=== PATIENT | male | born 1985 | race Caucasian/White ===

== ENCOUNTER 2016-08-25 19:50 | Emergency (ER) | payer SELFPAY ==
[2016-08-25] MEDS ORDERED: NORMAL SALINE 10 ML SYRINGE FLUSH IVP PRN (20:07)
[2016-08-25] MEDS ORDERED: Sodium Chloride 0.9% 1,000 ML PRIMARY IV ONE (20:07)
[2016-08-25] MEDS ORDERED: LORazepam 2 MG/1 ML VIAL IVP ONE (20:09)
[2016-08-25 20:20] VITALS: RESP 18; TEMP 97.2
[2016-08-25 20:24] LABS: BASOPHILS # (AUTO) 0.02 10*3/UL; BASOPHILS % (AUTO) 0.2 % (0-1); EOSINOPHILS # (AUTO) 0.14 10*3/UL; EOSINOPHILS % (AUTO) 1.4 % (0-8); HEMATOCRIT 46.4 % (42.0-52.0); HEMOGLOBIN 16.6 g/dL (14.0-18.0); LYMPHOCYTES # (AUTO) 2.19 10*3/uL; MEAN CORPUSCULAR HGB CONC 35.8 g/dL (33-37); MEAN CORPUSCULAR VOLUME 83.8 FL (80-90); MEAN PLATELET VOLUME 9.5 FL (7.4-12.2); MONOCYTES # (AUTO) 0.59 10*3/UL (0.3-0.8); NEUTROPHILS # (AUTO) 6.78 10*3/UL; NEUTROPHILS % (AUTO) 69.4 % (50-80); RED BLOOD COUNT 5.54 10^6/uL (4.70-6.10)
[2016-08-25 20:25] LABS: PLATELET MORPHOLOGY COMMENT NORMAL MORPHOLOGY (NORM); RBC MORPHOLOGY COMMENT NORMAL MORPHOLOGY (NORM); WBC MORPHOLOGY COMMENT NORMAL MORPHOLOGY (NORM)
[2016-08-25 20:26] LABS: BILIRUBIN,URINE NEGATIVE (NEG); COLOR,URINE YELLOW; GLUCOSE, URINE (UA) NEGATIVE (NEG); NITRATE,URINE NEGATIVE (NEG); OCCULT BLOOD,URINE MODERATE (NEG); PROTEIN,URINE 30 mg/dl (NEG); UROBILINOGEN,URINE 0.2 EU/dL (0.2)
[2016-08-25 20:32] LABS: CLARITY,URINE CLEAR (CLEAR); URINE SAMPLE TYPE VOID; URINE SPECIFIC GRAVITY - MAN 1.025
[2016-08-25 20:33] LABS: URINE CASTS MODERATE; WBC,URINE 0-3
[2016-08-25 20:34] LABS: AMPHETAMINE SCREEN NEGATIVE (NEG); CANNABINOID SCREEN,URINE POSITIVE (NEG); COCAINE SCREEN NEGATIVE (NEG); METHADONE URINE SCREEN NEGATIVE (NEG); METHAMPHETAMINES SCREEN,URINE NEGATIVE (NEG); OPIATE SCREEN,URINE NEGATIVE (NEG)
[2016-08-25 20:36] LABS: BLOOD UREA NITROGEN 14 mg/dL (7-22); C-REACTIVE PROTEIN < 0.5 mg/dL (0.0-0.9); CALCIUM 9.2 mg/dL (8.7-10.7); EST GLOMERULAR FILTRATION > 60 (>60 ml/min/1.73m(2)); MAGNESIUM 2.3 mg/dL (1.6-2.4); SALICYLATE < 1.0 mg/dl (0-20); SERUM ALBUMIN 4.7 g/dL (3.5-4.8)
--- NOTE | 2016-08-25 21:01 | PDOC ---
General Adult HPI - General Chief Complaint: General Medical Stated Complaint: "Out of it" Date Seen by Provider: 08/25/16 Time Seen by Provider: 19:55 Source: POSITIVE: Patient, EMS Nurse's Notes Reviewed & Considered: Yes EMS Report Reviewed & Considered: Verbal - History of Present Illness Initial Comment: The patient is a 30-year-old male who is brought to the emergency department by ambulance after a questionable seizure. The patient apparently has not been feeling well all day. He has had some nausea and generalized shakiness and weakness. He states that he was lying on the couch and subsequently got up to go into the kitchen. He apparently became very confused and his partner stated that he became somewhat stiff and out of it. He was laid down and EMS was called. This seemed to last for about a minute or 2. The patient states that when he woke up he was nauseated and feels weak in general. EMS was called and the patient was subsequently transported here for further evaluation. He does report a slight frontal headache which she rates at about a 2 out of 10. He also feels weak in general. His nausea has improved. He denies focal numbness or weakness in his extremities or change in vision. He does admit to smoking pot today in celebration of [employer] . In addition he does report that he has a history of bipolar, schizoaffective disorder and anxiety for which he takes Wellbutrin and Zyprexa. In addition he was taking Xanax fairly regularly order 2 mg a day for the past month. He states that he ran out of this medication 2 days ago. He denies any significant alcohol use stating the last time he drank was about a week ago. He does not have any known history of seizures. He denies any chest pain or shortness of breath. Have you received a tetanus shot in the past 10 years?: Yes - Patient Home Medications Home Medications: Home Medications Bupropion HCl [Wellbutrin Xl] 300 mg PO DAILY 08/25/16 LORazepam Tab [Ativan Tab] 1 mg PO Q6H #10 tablet 08/25/16 Olanzapine [Zyprexa] 5 mg PO QAM 08/25/16 Olanzapine [Zyprexa] 10 mg PO QPM 08/25/16 - Patient Allergies Allergies/Adverse Reactions: Allergies Allergy/AdvReac Type Severity Reaction Status Date / Time No Known Allergies Allergy Verified 08/25/16 21:02 Past Medical History - heen HEENT History: Denies History Cardiovascular History: Denies History Respiratory History: Denies History Gastrointestinal History: Denies History Genitourinary History: Denies History Endocrine History: Denies History Musculoskeletal History: Denies History Blood Disorders: Denies History Psychiatric History: Bi Polar Disorder, Anxiety Disorders History of Sexually Transmitted Diseases: No Male Reproductive History: Denies History Cancer History: Denies History In Past Year Been Physically Harmed or Verbally Threatened: No History of MDRO: No History of Other Communicable Diseases: No Tobacco Use: Current Every Day Smoker Alcohol Use: Occasionally Type of alcohol normally used: Beer Substance Use Type: Marijuana Previous Surgical History: Yes Type / Date of Surgery: RIGHT INGUINAL HERNIA REPAIR Anesthesia Reactions: No Malignant Hyperthermia: No Family History of Malignant Hyperthermia: No Significant Family History: No pertinent family hx Past Medical History Reviewed: Reviewed - No Changes ROS - Limitations ROS Limitations: No Limitations Constitution: DENIES: Chills, Fever Cardiovascular: REPORTS: Denies Cardiac Symptoms Respiratory: REPORTS: Denies Resp Symptoms Neurological: REPORTS: Denies Neuro Symptoms Gastrointestinal: REPORTS: Nausea (Improved at this point). DENIES: Abdominal Pain Endocrine: REPORTS: Fatigue (Generalized weakness) Musculoskeletal: REPORTS: Denies MS Symptoms Eyes: REPORTS: Denies Symptoms ENT: REPORTS: Denies Symptoms Skin: DENIES: Rash General Adult Exam - General Appearance General Appearance: POSITIVE: Alert, Cooperative, No Acute Distress, Other (He is somewhat shaky in general) - HEENT HEENT: POSITIVE: Head Inspection Nml, Eyes Inspection Nml, Ears Inspection Nml, Pharynx Inspect. Nml, PERRL, EOMI - Neck Neck: POSITIVE: Normal Inspection. NEGATIVE: Lymphadenopathy - Respiratory Respiratory: POSITIVE: No Respiratory Distress, Breath Sounds Normal - Cardiovascular Cardiovascular: POSITIVE: Regular Rate & Rhythm, No Murmur - Abdomen Abdomen: Soft: (All Quadrants), Normal Bowel Sounds: (All Quadrants), No Guarding: (All Quadrants), No Rebound: (All Quadrants), No Distention: (All Quadrants) - Back Back: POSITIVE: Normal Inspection - Skin Skin: POSITIVE: Normal Color, No Rash - Extremities Extremity: Normal ROM: (All Extremities), Normal Inspection: (All Extremities) - Neurological / Psychological Neurological: POSITIVE: Oriented X3, Motor Normal, Sensation Normal, Other (No focal neurologic deficits) General Adult Progress - Results Reviewed by me Xrays/CTs/US Reviewed by me: Yes Discussed with Radiologist: Yes Radiology Findings: CT scan of his head is normal per radiologist. Lab Results Reviewed: Yes Lab Results:: Laboratory Results 08/25/16 Range/Units 20:21 WBC 9.78 (4.8-10.8) 10^3/uL RBC 5.54 (4.70-6.10) 10^6/uL Hgb 16.6 (14.0-18.0) g/dL Hct 46.4 (42.0-52.0) % MCV 83.8 (80-90) FL MCH 30.0 (27-31) PG MCHC 35.8 (33-37) g/dL RDW Std Deviation 42.0 (39-50) fL RDW Coeff of Radha 13.8 (11.5-14.5) % Plt Count 261 (140-350) 10*3/uL MPV 9.5 (7.4-12.2) FL Immature Gran % (Auto) 0.6 (0-5) % Neut % (Auto) 69.4 (50-80) % Lymph % (Auto) 22.4 (10-50) % Benzie % (Auto) 6.0 (5-15) % Eos % (Auto) 1.4 (0-8) % Baso % (Auto) 0.2 (0-1) % Immature Gran # (Auto) 0.06 10*3/UL Neut # (Auto) 6.78 10*3/UL Lymph # (Auto) 2.19 10*3/uL Benzie # (Auto) 0.59 (0.3-0.8) 10*3/UL Eos # (Auto) 0.14 10*3/UL Baso # (Auto) 0.02 10*3/UL WBC Morphology Comment Normal morphology (NORM) Plt Morphology Comment Normal morphology (NORM) RBC Morph Comment Normal morphology (NORM) Sodium 134 L (135-145) meq/L Potassium 3.8 (3.8-5.2) meq/L Chloride 101 (98-112) meq/L Carbon Dioxide 18 L (23-33) meq/L Anion Gap 15 (5-20) BUN 14 (7-22) mg/dL Creatinine 1.0 (0.70-1.50) mg/dL Estimated GFR > 60 (>60 ml/min/1.73m(2)) BUN/Creatinine Ratio 14.00 (6-20) Glucose 128 H (78-110) mg/dL Calculated Osmolality 280.0 (267-292) mOsm/kg Calcium 9.2 (8.7-10.7) mg/dL Magnesium 2.3 (1.6-2.4) mg/dL Total Bilirubin 1.8 H (0.3-1.2) mg/dL AST 34 (21-57) IU/L ALT 61 (21-72) IU/L Alkaline Phosphatase 75 (38-126) IU/L C-Reactive Protein < 0.5 (0.0-0.9) mg/dL Total Protein 7.9 (6.1-8.0) g/dL Albumin 4.7 (3.5-4.8) g/dL Globulin 3.2 (2.50-4.10) g/dL Albumin/Globulin Ratio 1.40 (1.3-2.0) mg/g Ur Collection Type Void Urine Color Yellow Urine Clarity Clear (CLEAR) Urine pH 6.0 (5.0-8.5) Ur Specific [place] 1.025 (1.005-1.030) U Specif Grav (Refrac) 1.025 Urine Protein 30 (NEG) mg/dl Urine Glucose (UA) Negative (NEG) mg/dL Urine Ketones 15 (NEG) Urine Occult Blood Moderate H (NEG) Urine Nitrate Negative (NEG) Urine Bilirubin Negative (NEG) Urine Urobilinogen 0.2 (0.2) EU/dL Ur Leukocyte Esterase Negative (NEG) Urine RBC 3-5 (NONE) /hpf Urine WBC 0-3 (NONE) Ur Squamous Epith Cells None (NONE) Ur Renal Epithelial Cell None (NONE) Urine Crystals None Urine Bacteria None (NONE) Urine Casts Moderate (NONE) Urine Mucus None (NONE) Urine Trichomonas None (NONE) Urine Yeast None (NONE) Ur Culture Indicated? Culture not set Salicylates < 1.0 (0-20) mg/dl Urine Opiates Screen Negative (NEG) Ur Buprenorphine Negative (NEG) Ur Oxycodone Screen Negative (NEG) Urine Methadone Screen Negative (NEG) Ur Propoxyphene Screen Negative (NEG) Acetaminophen < 10.0 (0-30) ug/mL Barbiturate Screen Negative (NEG) U Tricyclic Antidepress Negative (NEG) Phencyclidine Screen Negative (NEG) Amphetamines Screen Negative (NEG) U Methamphetamines Scrn Negative (NEG) Benzodiazepines Screen Positive H (NEG) Cocaine Screen Negative (NEG) U Marijuana (THC) Screen Positive H (NEG) Serum Alcohol < 10 (0-10) mg/dL EKG Interpreted/Reviewed By Me:: Yes EKG Interpretation:: POSITIVE: Normal Sinus Rhythm, Normal Rate, Normal Intervals, Normal Gates, Normal QRS, Normal ST/T - Patient's Progress MDM / ED Course: The patient did receive a 1 L bolus of normal saline as well as Ativan 1 mg IV for treatment of potential benzodiazepine withdrawal. The patient was feeling much better after administration of Ativan. His head CT is normal in his lab work is all essentially unremarkable. He did test positive for benzodiazepine and THC. At this point it is unclear exactly what this episode represents. It is possible that he may have had a seizure, possibly a withdrawal seizure from benzodiazepine. In addition it's possible that this may have been more of a syncopal episode with some convulsive like activity. He does appear to be dehydrated and feels better after administration of Ativan and fluids. He will be discharged home with Ativan as needed for anxiety or withdrawal type symptoms. In addition he is advised to rest and push fluids. He will return to the emergency room if any worsening or if further seizure activity. He has an appointment with his primary care provider next Monday which he was advised to keep. Patient Care Time - Estimated PCT Patient Care Time (In Minutes): 25 Vital Signs - Recent Vital Signs Vital Signs: Vital Signs (Last 8 hours) Temp Pulse Resp BP Pulse Ox 08/25/16 19:50 97.2 F 90 18 129/98 95 - VS Reviewed Vital Signs Reviewed: Yes Discharge Clinical Impression: Syncope, convulsive Discharge Disposition: Discharged to Home Condition: Stable Prescriptions / Orders: LORazepam Tab [Ativan Tab] 1 mg PO Q6H #10 tablet Patient Instructions Given at Discharge: Syncope (ED) Additional Instructions: It is not exactly clear what this episode represents. It is possible that it could represent a seizure, possibly a withdrawal seizure from Xanax. It is also possible that this may have been a passing out episode more related to dehydration. Either way there may be some component of withdrawal from the Xanax. Recommend rest and push fluids. You have been given Ativan 1 mg every 6 hours as needed for increased shakiness or anxiety. Recommend reevaluation if any further seizure activity especially seizure lasting greater than 5 minutes or anything new or different. Keep your follow-up appointment with Bonita Rebollar at the [facility] in [place] next Monday. Follow Up With: NONE,NONE [Primary Care Provider] -
--- NOTE | 2016-08-25 21:05 | DI ---
CT HEAD SCAN WITHOUT IV CONTRAST, 08/25/2016 8:51 PM : Clinical History: Headache. Seizures. Syncope. Previous Exam: None at this facility. Scans are obtained from the foramen magnum to the vertex without IV contrast. The 4th, 3rd, and lateral ventricles are of normal size, shape, position, and contour for the patient 's age. There are no abnormal areas of increased or decreased density. Specifically, there is no evid ence of an acute hemorrhagic or bland infarct. There are no extracerebral mantles or shift of the mid line structures. Bone window evaluation is normal. There are mucous retention cysts or polyps in both maxillary sinuses. READING: Normal non contrast CT head scan.
--- NOTE | 2016-08-25 21:08 | EKG ---
[address] [address] Measurements Intervals [place] Rate: 82 P: 72 W[place]: 141 QRS: 6 QRSD: 101 T: 41 QT: 368 QTc: 407 Interpretive Statements SINUS RHYTHM INTERPRETATION BASED ON A DEFAULT AGE OF 40 YEARS No previous ECG available for comparison Electronically Signed On 08-29-16 10:31:25 MDT by Quentin Dominique MD [email or web address]
[2016-08-25] MEDS ORDERED: LORazepam 1 MG TABLET PO SCH (21:30)
== END 2016-08-25 21:45 | disposition home or self-care (01) ==
LOC: ER 19:50
DX: R55 Syncope and collapse (principal); R56.9 Unspecified convulsions; R51 Headache; F25.0 Schizoaffective disorder, bipolar type
CPT/HCPCS: 70450; 80053; 80305; 80320; 80329; 81001; 81003; 83735; 85025; 86140; 93005; 93010; 96374; 99284; J2060